=== PATIENT | male | born 1960 | race Caucasian/White ===

== ENCOUNTER 2020-04-13 08:05 | Outpatient (REF) | payer BC, SELFPAY | END 2020-04-13 08:06 | disposition home or self-care (01) | LOC: HO.BBR 08:05 | PROVIDERS: PCP Internal Medicine Endocrinology, Diabetes & Metabolism; Visit Provider Internal Medicine Gastroenterology | DX: E83.110 Hereditary hemochromatosis (principal) | CPT/HCPCS: 99195 ==

== ENCOUNTER 2020-06-08 08:32 | Outpatient (REF) | payer BC, OTHER, SELFPAY | END 2020-06-08 08:33 | disposition home or self-care (01) | LOC: HO.BBR 08:32 | PROVIDERS: Visit Provider Internal Medicine Gastroenterology | DX: Z13.89 Encounter for screening for other disorder (principal) ==

== ENCOUNTER 2020-07-24 10:57 | Outpatient (REF) | payer OTHER, SELFPAY | END 2020-07-24 10:58 | disposition home or self-care (01) | LOC: HO.WFDLDS 10:57 | PROVIDERS: PCP Internal Medicine Endocrinology, Diabetes & Metabolism; Visit Provider Internal Medicine | DX: Z20.822 Contact with and (suspected) exposure to COVID-19 (principal) | CPT/HCPCS: 36415; C9803; U0003; U0005 ==

== ENCOUNTER 2020-08-03 08:21 | Outpatient (REF) | payer OTHER, SELFPAY | END 2020-08-03 08:22 | disposition home or self-care (01) | LOC: HO.BBR 08:21 | PROVIDERS: Visit Provider Internal Medicine Gastroenterology | DX: Z13.89 Encounter for screening for other disorder (principal) ==

== ENCOUNTER 2020-10-05 08:06 | Outpatient (REF) | payer OTHER, SELFPAY | END 2020-10-05 08:07 | disposition home or self-care (01) | LOC: HO.BBR 08:06 | PROVIDERS: Visit Provider Internal Medicine Gastroenterology | DX: Z13.89 Encounter for screening for other disorder (principal) ==

== ENCOUNTER 2020-11-30 08:06 | Outpatient (REF) | payer OTHER, SELFPAY | END 2020-11-30 08:07 | disposition home or self-care (01) | LOC: HO.BBR 08:06 | PROVIDERS: Visit Provider Internal Medicine Gastroenterology | DX: Z13.89 Encounter for screening for other disorder (principal) ==

== ENCOUNTER 2021-01-24 13:06 | Outpatient (REF) | payer OTHER, SELFPAY | END 2021-01-24 13:07 | disposition home or self-care (01) | LOC: HO.BBR 13:06 | PROVIDERS: Visit Provider Internal Medicine Gastroenterology | DX: Z13.89 Encounter for screening for other disorder (principal) ==

== ENCOUNTER 2021-03-22 08:07 | Outpatient (REF) | payer OTHER, SELFPAY | END 2021-03-22 08:08 | disposition home or self-care (01) | LOC: HO.BBR 08:07 | PROVIDERS: Visit Provider Internal Medicine Gastroenterology | DX: Z13.89 Encounter for screening for other disorder (principal) ==

== ENCOUNTER 2021-06-28 08:17 | Outpatient (REF) | payer OTHER, SELFPAY | END 2021-06-28 08:18 | disposition home or self-care (01) | LOC: HO.BBR 08:17 | PROVIDERS: Visit Provider Internal Medicine Gastroenterology | DX: Z13.89 Encounter for screening for other disorder (principal) ==

== ENCOUNTER 2021-08-23 08:31 | Outpatient (REF) | payer OTHER, SELFPAY | END 2021-08-23 08:32 | disposition home or self-care (01) | LOC: HO.BBR 08:31 | PROVIDERS: Visit Provider Internal Medicine Gastroenterology | DX: Z13.89 Encounter for screening for other disorder (principal) ==

== ENCOUNTER 2021-10-18 08:08 | Outpatient (REF) | payer OTHER, SELFPAY | END 2021-10-18 08:09 | disposition home or self-care (01) | LOC: HO.BBR 08:08 | PROVIDERS: Visit Provider Internal Medicine Gastroenterology | DX: Z13.89 Encounter for screening for other disorder (principal) ==

== ENCOUNTER 2021-12-13 08:05 | Outpatient (REF) | payer OTHER, SELFPAY | END 2021-12-13 08:06 | disposition home or self-care (01) | LOC: HO.BBR 08:05 | PROVIDERS: Visit Provider Internal Medicine Gastroenterology | DX: Z13.89 Encounter for screening for other disorder (principal) ==

== ENCOUNTER 2022-01-31 08:02 | Outpatient (REF) | payer OTHER, SELFPAY | END 2022-01-31 08:03 | disposition home or self-care (01) | LOC: HO.BBR 08:02 | PROVIDERS: Visit Provider Internal Medicine Gastroenterology | DX: Z13.89 Encounter for screening for other disorder (principal) ==

== ENCOUNTER 2022-03-25 08:07 | Outpatient (REF) | payer OTHER, SELFPAY | END 2022-03-25 08:08 | disposition home or self-care (01) | LOC: HO.BBR 08:07 | PROVIDERS: Visit Provider Internal Medicine Gastroenterology | DX: Z13.89 Encounter for screening for other disorder (principal) ==

== ENCOUNTER 2022-06-17 09:02 | Outpatient (REF) | payer OTHER, SELFPAY | END 2022-06-17 09:03 | disposition home or self-care (01) | LOC: HO.BBR 09:02 | PROVIDERS: Visit Provider Internal Medicine Gastroenterology | DX: Z13.89 Encounter for screening for other disorder (principal) ==

== ENCOUNTER 2022-09-01 14:04 | Outpatient (REF) | payer OTHER, SELFPAY | END 2022-09-01 14:05 | disposition home or self-care (01) | LOC: HO.BBR 14:04 | PROVIDERS: PCP Internal Medicine Endocrinology, Diabetes & Metabolism; Visit Provider Internal Medicine Gastroenterology | DX: Z13.89 Encounter for screening for other disorder (principal) ==

== ENCOUNTER 2022-12-08 08:05 | Outpatient (REF) | payer OTHER, SELFPAY | END 2022-12-08 08:06 | disposition home or self-care (01) | LOC: HO.BBR 08:05 | PROVIDERS: Visit Provider Internal Medicine Gastroenterology | DX: Z13.89 Encounter for screening for other disorder (principal) ==

== ENCOUNTER 2023-03-03 08:11 | Outpatient (REF) | payer OTHER, SELFPAY | END 2023-03-03 08:12 | disposition home or self-care (01) | LOC: HO.BBR 08:11 | PROVIDERS: Visit Provider Internal Medicine Gastroenterology | DX: Z13.89 Encounter for screening for other disorder (principal) ==

== ENCOUNTER 2023-05-26 08:57 | Outpatient (REF) | payer OTHER, SELFPAY | END 2023-05-26 08:58 | disposition home or self-care (01) | LOC: HO.BBR 08:57 | PROVIDERS: PCP Internal Medicine Endocrinology, Diabetes & Metabolism; Visit Provider Internal Medicine Gastroenterology | DX: Z13.89 Encounter for screening for other disorder (principal) ==

== ENCOUNTER 2023-08-20 08:58 | Outpatient (REF) | payer OTHER, SELFPAY | END 2023-08-20 08:59 | disposition home or self-care (01) | LOC: HO.BBR 08:58 | PROVIDERS: PCP Internal Medicine Endocrinology, Diabetes & Metabolism; Visit Provider Internal Medicine Gastroenterology | DX: Z13.89 Encounter for screening for other disorder (principal) ==

== ENCOUNTER 2023-09-11 12:01 | Outpatient (REF) | payer MEDICARE, OTHER, SELFPAY | END 2023-09-11 12:02 | disposition home or self-care (01) | LOC: HO.BBR 12:01 | PROVIDERS: PCP Internal Medicine Endocrinology, Diabetes & Metabolism; Visit Provider Internal Medicine Gastroenterology | DX: Z13.89 Encounter for screening for other disorder (principal) ==

== ENCOUNTER 2023-12-04 08:08 | Outpatient (REF) | payer OTHER, MEDICARE, SELFPAY | END 2023-12-04 08:09 | disposition home or self-care (01) | LOC: HO.BBR 08:08 | PROVIDERS: PCP Internal Medicine Endocrinology, Diabetes & Metabolism; Visit Provider Internal Medicine Gastroenterology | DX: Z13.89 Encounter for screening for other disorder (principal) ==

== ENCOUNTER 2024-03-04 08:08 | Outpatient (REF) | payer OTHER, MEDICARE, SELFPAY | END 2024-03-04 08:09 | disposition home or self-care (01) | LOC: HO.BBR 08:08 | PROVIDERS: PCP Internal Medicine Endocrinology, Diabetes & Metabolism; Visit Provider Internal Medicine Gastroenterology | DX: Z13.89 Encounter for screening for other disorder (principal) ==

== ENCOUNTER 2024-05-27 08:13 | Outpatient (REF) | payer OTHER, MEDICARE, SELFPAY ==
--- OUTSIDE RECORDS SUMMARY | 2024-06-01 05:23 | XMS_ITS | Continuity of Care Document ---
Author Organization [facility] [address] [place] [address] Phone [phone] Care Team Providers Care Apron Man Name Role Phone John Lind M.D. Care Team Information Rece iver [phone] Rosangela Avalos Care Team Information Receive r [phone] Problems Active Problems Provider Date Cardiomyopathy John Lind M.D. Onset: Sarcoidosis John Lind M.D. Onset: Polyneuropathy John Lind M.D. Onset: Hemochromatosis Nurse Onset: Essential hypertension Nurse Onset: Social History Type Date Description Comments Sex Unknown Lives With Spouse ETOH Use Denies alcohol use Tobacco Use Start: Unknown Patient has never smoked Allergies and adverse reactions Description No Known Drug Allergies Medications Active Medications SIG Qnty Indications Ordering Provider Date Tamsulosin HCL0.4mg Capsules Take 1 Capsule By Mouth Every Night 90levy Lind M.D. 12/16/2022 [id number] Capsules Take 1 Capsule By Mouth Twice A Day 120levy Villanueva M.D. 05/12/2022 [id number] Tablets Take 1 & 1/2 by mouth daily Unknown [id number] Tablets Take 1 tablet daily Unknown [id number] Tablets Take 1 daily Unknown Metoprolol Succinate ER25mg Tablets ER 24HR Take 1 Tablet By Mouth Daily. In The Morning And 1/2 Tablet By Mouth In The Even Unknown Vital Signs Date Vital Result Comment 03/07/2024 9:15am BP Systolic 90 mmHg BP Diastolic 60 mmHg Heart Rate 98 /min Height 69.5 inches 5'9.50 Weight 159.38 lb BMI (Body Mass Index) 23.2 kg/m2 Results Test Acquired Date Facility Test Result H/L Range Note Laboratory test finding 03/09/2024 [facility] Hemoglobin A1c 5.4 % 4.8-5.6 1 Glucose 93 mg/dL 70-99 Laboratory test finding 03/07/2024 [facility] Glucose, Serum <pending> Comp. Metabolic Panel (14) 01/04/2024 [facility] Glucose 102 mg/dL High 70-99 BUN 18 mg/dL 8-27 Creatinine 0.97 mg/dL 0.76-1. 27 eGFR 87 mL/min/1.73 >59 BUN/Creatinine Ratio 19 10-24 Sodium 139 mmol/L 134-144 Potassium 4.8 mmol/L 3.5-5.2 Chloride 106 mmol/L 96-106 Carbon Dioxide, Total 20 mmol/L 20-29 Calcium 9.6 mg/dL 8.6-10. 2 Protein, Total 6.5 g/dL 6.0-8.5 Albumin 4.3 g/dL 3.9-4.9 Globulin, Total 2.2 g/dL 1.5-4.5 Bilirubin, Total 0.5 mg/dL 0.0-1 .2 Alkaline Phosphatase 88 IU/L 44-121 Ast (Sgot) 21 IU/L 0-40 Alt (SGPT) 23 IU/L 0-44 Lipid Panel 01/04/2024 [facility] Cholesterol, Total 131 mg/dL 100-199 Triglycerides 234 mg/dL High 0-149 HDL Cholesterol 25 mg/dL Low >39 VLDL Cholestero l Adam 39 mg/dL 5-40 LDL Chol Calc (Nih) 67 mg/dL 0-99 LDL Calc Comment: TNP Laboratory test finding 01/04/2024 [facility] Prostate-Specifi c Ag 0.7 ng/mL 0.0-4.0 2 Comprehensive Metabolic Panl 05/12/2023 [facility] Glucose 74 mg/dL (70-99) BUN 25 mg/dL High (8-23) Creatinine 1.1 mg/dL (0.7-1. 2) Sodium 140 mmol/L (133-14 5) Potassium 4.9 mmol/L (3.6-5. 2) Chloride 101 mmol/L (98-107 ) Bicarbonate 27 mmol/L (22-29) Anion Gap 12 (4-17) Albumin 4.5 GM/DL (3.4-4. 8) Calcium 9.8 mg/dL (8.6-10 .5) Bilirubin,Total 0.5 mg/dL (0-1.2 ) Total Protein 6.7 GM/DL (6.2-8. 2) Ag Ratio 2.0 Ast 20 U/L (0-40) Alk Phos 94 U/L (40-129 ) Alt 34 U/L (0-41) Estimated GFR Creatinine 74 ML/MIN/1.73M2 3 Free And Total PSA 05/12/2023 [facility] Lab Total PSA 0.7 NG/ML (0-4) 4 Free PSA 0.3 NG/ML Percent Free PSA THE PERCENTAGE O <SEE NOTE> % (25-100 ) 5 Free And Total PSA 06/17/2022 [facility] Lab Total PSA 1.3 NG/ML (0-4) 6 Free PSA 0.3 NG/ML Percent Free PSA THE PERCENTAGE O <SEE NOTE> % (25-100 ) 7 1 Prediabetes: 5.7 - 6 .4 Diabetes: >6.4 Glycemic control for adults with diabetes: <7.0 2 Samir ECLIA methodol ogy. According to the [employer] [employer], Serum PSA should decrease and remain at undetectable levels after radical prostatectomy. The AUA defines biochemical recurrence as an initial PSA value 0.2 ng/mL or greater followed by a subsequent confirmatory PSA value 0.2 ng/mL or greater. Values obtained with different assay methods or kits cannot be used interchangeably. Results cannot be interpreted as absolute evidence of the presence or absence of malignant disease. 3 Creatinine based est imated glomerular filtration (eGFR) in adults is calculated using the National Kid[employer] Foundation recommended 2020 CKD-EPI equation. Estimates GFR from serum creatinine, age and sex. 4 TEST PERFORMED USING THE SAMIR ELECTROCHEMILLUMINESCENCE TOTAL PSA ASSAY. PSA VALUES OBTAINED WITH OTHER ASSAY METHODS OR KITS CANNOT BE USED INTERCHANGEABLY. 5 THE PERCENTAGE OF FR EE PSA IS INTENDED TO BE USED TO ENHANCE THE DIFFERENTIATION OF PROSTATE CANCER FROM BENIGN PROSTATE DISEASE IN SUBJECTS WHOSE TOTAL PSA VALUES ARE BETWEEN 4.0 AND 10.0 NG/ML. FOR SUBJECTS WHOSE TOTAL PSA LEVELS FALL BELOW 4.0 OR ABOVE 10.0 NG/ML, THE PROBABILITY OF PROSTATE CANCER IS DETERMINED ON THE BASIS OF THE TOTAL PSA ALONE. THEREFORE, THE PERCENT FREE PSA VALUES WILL NOT BE CALCULATED OR REPORTED WHEN THE TOTAL PSA IS LESS THAN 4.0 OR ABOVE 10.0 NG/ML. TESTING PERFORMED USING THE SAMIR ELECTROCHEMILLUMINESCENCE TOTAL AND FREE PSA ASSAYS. VALUES OBTAINED WITH OTHER ASSAY METHODS OR KITS CANNOT BE USED INTERCHANGEABLY. 6 TEST PERFORMED USING THE SAMIR ELECTROCHEMILLUMINESCENCE TOTAL PSA ASSAY. PSA VALUES OBTAINED WITH OTHER ASSAY METHODS OR KITS CANNOT BE USED INTERCHANGEABLY. 7 THE PERCENTAGE OF FR EE PSA IS INTENDED TO BE USED TO ENHANCE THE DIFFERENTIATION OF PROSTATE CANCER FROM BENIGN PROSTATE DISEASE IN SUBJECTS WHOSE TOTAL PSA VALUES ARE BETWEEN 4.0 AND 10.0 NG/ML. FOR SUBJECTS WHOSE TOTAL PSA LEVELS FALL BELOW 4.0 OR ABOVE 10.0 NG/ML, THE PROBABILITY OF PROSTATE CANCER IS DETERMINED ON THE BASIS OF THE TOTAL PSA ALONE. THEREFORE, THE PERCENT FREE PSA VALUES WILL NOT BE CALCULATED OR REPORTED WHEN THE TOTAL PSA IS LESS THAN 4.0 OR ABOVE 10.0 NG/ML. TESTING PERFORMED USING THE SAMIR ELECTROCHEMILLUMINESCENCE TOTAL AND FREE PSA ASSAYS. VALUES OBTAINED WITH OTHER ASSAY METHODS OR KITS CANNOT BE USED INTERCHANGEABLY. Procedures Date Code Description Status 12/16/2022 26402 Additional suppl ies, materials, staff time over and above usual Completed 06/03/2022 09511 Additional suppl ies, materials, staff time over and above usual Completed Medical Devices Description No Information Available Encounters Type Date Location Provider Dx Diagnosis Office Visit 03/07/2024 8:45a Main Office NERIS Moss E83.119 Hemochromatos is, unspecified G62.9 Polyneuropathy, unsp ecified D86.9 Sarcoidosis, unspeci fied I42.9 Cardiomyopathy, unsp ecified Z83.3 Family history of di abetes mellitus Assessments Date Code Description Provider 03/07/2024 E83.119 Hemochromatosis, unspecified NERIS Moss 03/07/2024 G62.9 Neuropathy NERIS Moss 03/07/2024 D86.9 Sarcoidosis NERIS Moss 03/07/2024 I42.9 Cardiomyopathy NERIS Chowdhury 03/07/2024 Z83.3 Family history of diabetes m tanja NERIS Moss Plan of Treatment Future Appointment(s):* 09/08/2024 1:15 pm - NERIS Moss at Main Office 03/07/2024 - NERIS Moss* E83.119 Hemochromatosis, unspecified * G62.9 Neuropathy * D86.9 Sarcoidosis * I42.9 Cardiomyopathy * Z83.3 Family history of diabetes mellitus* New Labs:* Lipid Panel, Ordered: 03/07/24 Functional Status Description No Information Available Mental Status Description No Information Available Referrals Refer to Reason for Referral Status Appt Santiago e [facility] Pulmonary SARCOIDOSIS HISTORY OF RSV Closed 10/07/2022 [address] [place] [address] [phone]
== END 2024-05-27 08:14 | disposition home or self-care (01) ==
LOC: HO.BBR 08:13
PROVIDERS: PCP Internal Medicine Endocrinology, Diabetes & Metabolism; Visit Provider Internal Medicine Gastroenterology
DX: Z13.89 Encounter for screening for other disorder (principal)

== ENCOUNTER 2024-08-19 08:36 | Outpatient (REF) | payer OTHER, MEDICARE, SELFPAY ==
--- OUTSIDE RECORDS SUMMARY | 2024-08-19 08:52 | XMS_ITS | Encounter Summary ---
Author Organization [facility] [place] [address] Care Team Providers Care Loom Technician Name Role Phone Rosangela Avalos Primary Care Provider [phone] Encounter Details Date Type Department Care Team (Late st Contact Info) Description 07/29/2024 Telephone Gastroenterology - [address] [place] [address] Mary Galvan MA Social History Tobacco Use Types Packs/Day Years Used Date Smoking Tobacco: Never Passive Smoke Exposure: Never Smokeless Tobacco: Never Alcohol Use Standard Drinks/Week Comments Not Currently 0 (1 standard drink = 0.6 oz pur e alcohol) Sex and Gender Information Value Date Recorded Sex Assigned at Male 07/19/2024 1:44 PM EST Legal Sex Male 1:57 AM EST Gender Identity Male 07/19/2024 1:44 PM EST Sexual Orientation Choose not to disclose 2024 1:44 PM EST documented as of this encounter Progress Notes * Mary Galvan MA - 07/29/2024 1:[address] TAY TOLD PT ULTRASOUND OK NO MASSES NEEDS TO REPEAT IN 6MO ALONG WITH LABOWRK * Mary Galvan MA - 07/29/2024 1:55 PM EST ----- Message from Ramón Tay MD sent at 07/29/2024 12:41 PM EST ----- Call pt, US OK, no mass, repeat 6 mo US ands lab recall 6 mo ty documented in this encounter Plan of Treatment Upcoming Encounters Date Type Department Care Team (Late st Contact Info) Description 08/19/2024 10:15 AM EST Office Visit Gastroenterology - [address] [address] Rangel Tay MD [address] [address] documented as of this encounter Visit Diagnoses Not on filedocumented in this encounter Care Teams Loom Technician Relationship Specialty Start Date End Date Rosangela Avalos PA [address] [place] [address] [address] [place] [address] PCP - General 07/05/24 documented as of this encounter
--- OUTSIDE RECORDS SUMMARY | 2024-08-19 08:52 | XMS_ITS | Encounter Summary ---
Author Organization [facility] Address [address] [place] [address] Care Team Providers Care Veterinary Medical Officer Name Role Phone Rosangela Avalos Primary Care Provider [phone] Reason for Visit * Reason Comments Pain Consult * Consultation (Routine) - Closed Specialty Diagnoses / Procedures Referred By Contac t Referred To Contact Orthopedic Surgery / Orthopaedic Surgery Diagnoses Knee pain, unspecified chronicity, unspecified laterality Rosangela Avalos PA [address] [place] [address] Dr [address] [place] [address] Phone: tel: fax: Linden Bermeo PA [address] [place] [address] Phone: tel: fax: Referral ID Status Reason Start Date Expiration Date V isits Requested Visits Authorized [id number] Closed Specialty Services Required 07/22/2024 07/22/2025 1 1 Encounter Details Date Type Department Care Team (Late st Contact Info) Description 07/26/2024 1:30 PM EST Consult Orthopedics - [address] [address] Linden Bermeo PA [address] [place] [address] Primary osteoarthritis of left knee (Primary Dx); Knee pain, unspecified chronicity, unspecified laterality Social History Tobacco Use Types Packs/Day Years Used Date Smoking Tobacco: Never Passive Smoke Exposure: Never Smokeless Tobacco: Never Tobacco Cessation:Counseling Given: Not Answered Alcohol Use Standard Drinks/Week Comments Not Currently 0 (1 standard drink = 0.6 oz pur e alcohol) Sex and Gender Information Value Date Recorded Sex Assigned at Male 07/19/2024 1:44 PM EST Legal Sex Male 1:57 AM EST Gender Identity Male 07/19/2024 1:44 PM EST Sexual Orientation Choose not to disclose 2024 1:44 PM EST documented as of this encounter Last Filed Vital Signs Vital Sign Reading Time Taken Comments Blood Pressure - - Pulse - - Temperature - - Respiratory Rate 16 07/26/2024 1:33 PM EST Oxygen Saturation - - Inhaled Oxygen Concentration - - Weight 73 kg (161 lb) 07/26/2024 1:33 PM EST Height 176.5 cm (5' 9.5 ) 07/26/2024 1:33 PM EST Body Mass Index 23.43 07/26/2024 1:33 PM EST documented in this encounter Ordered Prescriptions Prescription Sig Dispense Quantity Refills Last Filled Start Date End Date diclofenac (VOLTAREN) 1 % topical gelIndications:Kne e pain, unspecified chronicity, unspecified laterality Apply 1 g topically 3 (three) times a day. 90 g 2 07/26/2024 documented in this encounter Progress Notes * NERIS Schultz - 07/26/2024 1:30 PM EST CHIEF COMPLAINT: Pain and Consult of the Left Knee had concerns including Pain and Consult of the Left Knee. IDENTIFIER: Horacio Andujar is a 63 y.o. old male. HPI: Horacio Andujar is here for evaluation of left knee pain. Patient describes pain in the knee that started about a month or so ago. Difficulty with bent knee activities climbing stairs etc. He had some swelling a few months ago around [place] time. Was also seen for this a few years ago and found to have arthritis in the knee. Also has a more distant history of meniscus surgery.. ROS: GENERAL: No malaise, significant weight loss or fever HEENT: No changes in hearing or vision, nose bleeds or other nasal problems NECK: No lumps, goiter, pain or significant neck swelling RESPIRATORY: No cough, wheezing or shortness of breath CARDIOVASCULAR: No chest pain, leg swelling or palpitations GI: No abdominal discomfort, blood in stools or black stools : No dysuria, frequency or incontinence MUSCULOSKELETAL: See HPI. SKIN: No lesions, rash or itching NEURO: No persistent headache, syncope, seizures, weakness or numbness Remainder of systems noncontributory. PHYSICAL EXAM: Vitals: 07/26/24 1333 Resp: 16 Weight: 73 kg (161 lb) Height: 1.765 m (69.5 ) Today there is no swelling or effusion Tenderness of the lateral joint line No instability LABS/IMAGING: Xrays reviewed: X-rays taken today demonstrate severe joint space narrowing of the left knee particularly of the lateral side and almost [id number] on the tunnel view. These are similar to x-rays taken in 2021 IMPRESSION: 1. Primary osteoarthritis of left knee 2. Knee pain, unspecified chronicity, unspecified laterality PLAN: 1. Knee pain, unspecified chronicity, unspecified laterality - Ambulatory referral to Orthopedic Surgery - diclofenac (VOLTAREN) 1 % topical gel; Apply 1 g topically 3 (three) times a day. Dispense: 90 g;Refill: 2 2. Primary osteoarthritis of left knee We discussed options. It sounds like this is not as frequent or severe that this requires injection. I did prescribe Voltaren gel and patient can always return if pain becomes more severe or frequentto require possibly an injection No orders of the defined types were placed in this encounter. The details of the visit were reviewed with the patient. Pertinent history, and objective findings were reviewed, along with the diagnoses: Horacio Kielor acknowledges understanding of the above plan and agrees to follow recommendations and/or take medications as prescribed. No follow-ups on file. PAST MEDICAL HISTORY: There are no problems to display for this patient. Past Surgical History: Procedure Laterality Date BACK SURGERY PROCEDURE: HISTORICAL BACK SURGERY; COMMENT: L5-S1 HAND SURGERY Left PROCEDURE: HISTORICAL HAND SURGERY; COMMENT: ORIF of Metacarpal Fractures, hardware removed HERNIA REPAIR Bilateral PROCEDURE: HISTORICAL HERNIA REPAIR/ING KNEE ARTHROSCOPY Left 01/16/2006 PROCEDURE: VT ARTHROSCOPY AID TX SPINE&/FX KNEE W/O FIXJ; COMMENT: Partial Lateral Mensicectomy, Partial Medial and Lateral Chondroplasty: Dr. Gilliland SOCIAL HISTORY: Social History Tobacco Use Smoking status: Never Passive exposure: Never Smokeless tobacco: Never Substance Use Topics Alcohol use: Not Currently FAMILY HISTORY: No family history on file. MEDICATIONS DISCONTINUED/REORDERED: There are no discontinued medications. ACTIVE MEDICATIONS: Outpatient Medications Marked as Taking for the 07/26/24 encounter (Consult) with NERIS Schultz Medication Sig Dispense Refill Farxiga 10 mg tablet Take 1 tablet (10 mg total) by mouth 1 (one) time each day. metoprolol succinate (TOPROL-XL) 25 mg 24 hr tablet Take 1.5 tablets (37.5 mg total) by mouth 2 (two) times a day. pregabalin (LYRICA) 50 mg capsule Take 50 mg by mouth 2 times daily. spironolactone (ALDACTONE) 25 mg tablet Take 1 tablet (25 mg total) by mouth 1 (one) time each day. tamsulosin (FLOMAX) 0.4 mg 24 hr capsule Take 1 capsule (0.4 mg total) by mouth 1 (one) time each day. valsartan (DIOVAN) 40 mg tablet Take 1.5 tablets (60 mg total) by mouth 1 (one) time each day. ALLERGIES: No Known Allergies NERIS Schultz Cosigned by Nino Rodriguez MD at 07/31/2024 5:14 PM EST documented in this encounter Plan of Treatment Upcoming Encounters Date Type Department Care Team (Late st Contact Info) Description 08/19/2024 10:15 AM EST Office Visit Gastroenterology - [address] [phone] Rangel Tay MD [address] [address] documented as of this encounter Visit Diagnoses Diagnosis Primary osteoarthritis of left knee- Primary Knee pain, unspecified chronicity, unspecified laterality documented in this encounter Historical Medications * This list may reflect changes made after this encounter. valsartan (DIOVAN) 40 mg tablet Take 1.5 tablets (60 mg total) by mouth 1 (one) time each day. metoprolol succinate (TOPROL-XL) 25 mg 24 hr tablet Take 1.5 tablets (37.5 mg total) by mouth 2 (two) times a day. 05/31/2024 tamsulosin (FLOMAX) 0.4 mg 24 hr capsule Take 1 capsule (0.4 mg total) by mouth 1 (one) time each day. spironolactone (ALDACTONE) 25 mg tablet Take 1 tablet (25 mg total) by mouth 1 (one) time each day. Farxiga 10 mg tablet Take 1 tablet (10 mg total) by mouth 1 (one) time each day. 08/25/2023 added in this encounter Orders Outpatient Referral Count Last Ordered Date Fir st Ordered Date AMB REFERRAL TO ORTHOPEDIC SURGERY 1 2024 documented in this encounter Care Teams Veterinary Medical Officer Relationship Specialty Start Date End Date Rosangela Avalos PA [address] [place] [address] [address] [place] [address] PCP - General 07/05/24 documented as of this encounter
--- OUTSIDE RECORDS SUMMARY | 2024-08-19 08:52 | XMS_ITS | Continuity of Care Document ---
Author Organization [facility] [address] [place] [address] Phone [phone] Care Team Providers Care Automation/Controls Manager Name Role Phone John Lind M.D. Care Team Information Rece iver [phone] Rosangela Avalos Care Team Information Receive r [phone] Problems Active Problems Provider Date Cardiomyopathy John [...] Mouth Every Night 90levy Lind M.D. 12/16/2022 [id number] Capsules Take 1 Capsule By Mouth Twice A Day 120levy Villanueva M.D. 05/12/2022 [id number] Tablets Take 1 & 1/2 by mouth daily Unknown Owbmezp06mc Tablets Take 1 tablet daily Unknown [id number] Tablets Take 1 daily Unknown Metoprolol Succinate [...] ng/mL 0.0-4.0 2 Comprehensive Metabolic Panl 05/12/2023 [facility] Glucose 74 mg/dL (70-99) [...] ML/MIN/1.73M2 3 Free And Total PSA 05/12/2023 [facility] Total PSA 0.7 NG/ML (0-4) 4 Free PSA 0.3 NG/ML Percent Free PSA THE PERCENTAGE O <SEE NOTE> % (25-100 ) 5 Free And Total PSA 06/17/2022 [facility] Total PSA 1.3 NG/ML (0-4) 6 Free PSA 0.3 NG/ML Percent Free PSA THE PERCENTAGE O <SEE NOTE> % (25-100 ) 7 1 Prediabetes: 5.7 - 6 .4 Diabetes: >6.4 Glycemic control for adults with diabetes: <7.0 2 Samir ECLIA methodol ogy. According to the [place] [employer], Serum PSA should decrease and [...] INTERCHANGEABLY. Procedures Date Code Description Status 12/16/2022 04309 Additional suppl ies, materials, staff time over and above usual Completed 06/03/2022 39111 Additional suppl ies, materials, staff time over [...] 03/07/2024 Z83.3 Family history of diabetes m kerryelise NERIS Moss Plan of Treatment Future Appointment(s):* 09/30/2024 3:00 pm - NERIS Moss at Main Office 03/07/2024 - NERIS Moss* E83.119 Hemochromatosis, unspecified * G62.9 Neuropathy * D86.9 Sarcoidosis * I42.9 Cardiomyopathy * Z83.3 Family history of diabetes mellitus* New Labs:* Lipid Panel, Ordered: 03/07/24 Functional Status Description No Information Available Mental Status Description No Information Available Referrals Refer to Reason for Referral Status Appt [facility] Knee Pain Closed 07/26 [address] [place], [place] [id number] [phone] [facility] Pulmonary SARCOIDOSIS HISTORY OF RSV Closed 10/07/2022 [address] [place], [place] [id number] [phone]
--- OUTSIDE RECORDS SUMMARY | 2024-08-19 08:52 | XMS_ITS | Encounter Summary ---
Author Organization [facility] Address [address] [place] [address] Care Team Providers Care Wood Fence Installer Name Role Phone Rosangela Avalos Primary Care Provider Reason for Referral * Imaging (Routine) - Closed Specialty Diagnoses / Procedures Referred By Contac t Referred To Contact Radiology Diagnoses Hereditary hemochromatosis (CMS/HCC) Procedures US Abdomen Complete Rangel Tay MD [address] [place] [address] Phone: tel: fax: [address] [address] Phone: tel: Referral ID Status Reason Start Date Expiration Date Visits Re quested Visits Authorized [id number] Closed 07/19/2024 07/19/2025 1 1 Reason for Visit * Imaging (Routine) - Closed Specialty Diagnoses / Procedures Referred By Contac t Referred To Contact Radiology Diagnoses Hereditary hemochromatosis (CMS/HCC) Procedures US Abdomen Complete Rangel Tay MD [address] [address] Phone: tel: fax: [address] [address] Phone: tel: Referral ID Status Reason Start Date Expiration Date Visits Re quested Visits Authorized [id number] Closed 07/19/2024 07/19/2025 1 1 Encounter Details Date Type Department Care Team (Latest Contact Info) Description 07/29/2024 8:25 AM EST - 07/29/2024 11:59 PM EST Hospital Encounter [facility] Ultrasound [address] [place] [address] Hereditary hemochromatosis (CMS/HCC) Discharge Disposition: Home or Self Care Social History Tobacco Use Types Packs/Day Years [...] PM EST documented as of this encounter Medications at Time of Discharge diclofenac (VOLTAREN) 1 % topical gelIndications:Kn ee pain, unspecified chronicity, unspecified laterality Apply 1 g topically 3 (three) times a day. 90 g 2 07/26/2024 Farxiga 10 mg tablet Take 1 tablet (10 mg total) by mouth 1 (one) time each day. 08/25/2023 lisinopriL (PRINIVIL,ZESTRIL ) 10 mg tablet Take 1 tablet (10 mg total) by mouth 1 (one) time each day. 01/20/2022 metoprolol succinate (TOPROL-XL) 25 mg 24 hr tablet Take 1.5 tablets (37.5 mg total) by mouth 2 (two) times a day. 05/31/2024 pregabalin (LYRICA) 50 mg capsule Take 50 [...] by mouth 1 (one) time each day. documented as of this encounter Discharge Disposition Disposition Code Departure Means Destination Home or Self Care documented in this encounter Plan of Treatment Upcoming Encounters Date Type Department Care Team (Late st Contact Info) Description 08/19/2024 10:15 AM EST Office Visit Gastroenterology - [address] [facility] [address] [place] [address] Rangel Tay MD [address] [facility] [address] [place] [address] documented as of this encounter Procedures Procedure Name Priority Date/Time Associated Diagnosis Comments US ABDOMEN COMPLETE Routine 07/29/2024 9:02 AM EST Hereditary hemochromatosis (CMS/HCC) documented in this encounter Results * US Abdomen Complete (07/29/2024 9:02 AM EST) Anatomical Region Laterality Modality Body Ultrasound 07/29/2024 11:5 6 AM EST Impressions 07/29/2024 12:06 PM EST 1. Heterogeneous hepatic echotexture consistent with the history of hemochromatosis. 2. Cholelithiasis without evidence of cholecystitis. The extra-hepatic duct is at the upper limits of normal at 6.2 mm. There is no intrahepatic biliary dilatation. 3. Bilateral nonobstructing renal calculi are present. There is a small proteinaceous or hemorrhagic cyst at the lower pole of the right kidney, measuring up to 9.1 mm. 4. Moderate splenomegaly. 5. The pancreas is incompletely visualized on this study. Code 20057 G9550, G9547 -------- FINAL REPORT -------- Dictated By: Gagan Fuentes Dictated Date: 07/29/2024 11:56 ET Assigned Physician: Gagan Fuentes Reviewed and Electronically Signed By: Gagan Fuentes Signed Date: 07/29/2024 12:06 ET Workstation ID: [id number] Transcribed By: Self Edit Transcribed Date: 07/29/2024 12:04 ET Narrative 07/29/2024 12:06 PM EST HISTORY: The patient is a 63-year-old male with history of hemachromatosis. FINDINGS: Real-time ultrasonography of the abdomen is performed. The visualized portion of the inferior vena cava is patent. The abdominal aorta is normal in caliber, with the suprarenal aorta measuring 2.6 cm, the proximal infrarenal aorta measuring 2.0 cm, and the distal infrarenal aorta measuring 2.0 cm. A moderate amount of atherosclerotic plaque is present. The head and body of the pancreas are of normal appearance; the tail is poorly visualized. The liver is normal in size with a span of 13.1 cm. There hepatic parenchyma is heterogeneous consistent with the history of hemachromatosis. No hepatic mass is seen. The portal vein is patent with hepatopetal flow. There is no intrahepatic biliary dilatation. The extra-hepatic duct is at the upper limits of normal in caliber, at 6.2 mm. No ductal calculus or mass is seen. The gallbladder demonstrates multiple mobile echogenic foci consistent with calculi. There is no gallbladder wall thickening or pericholecystic fluid, and there is no sonographic Catherine's sign per technologist notes. The right kidney is normal in size, measuring 10.2 cm in length. There is normal cortical thickness and no hydronephrosis or solid mass is seen. A group of echogenic foci are present at the interpolar area consistent with nonobstructing calculi. There is a tiny hypoechoic lesion at the lower pole measuring 8.0 x 7.7 x 9.1 mm, with internal echoes and a small amount of posterior acoustic shadowing, consistent with a proteinaceous or hemorrhagic cyst. The left kidney is normal in size, measuring 10.6 cm in length. There is normal cortical thickness and no mass or hydronephrosis is seen. There is a 4.3 mm echogenic focus at the mid to lower pole, consistent with a nonobstructing calculus. The spleen is moderately enlarged, measuring 18.3 x 6.4 x 15.1 cm. No ascites is seen. Procedure Note Gagan Fuentes MD - 07/29/2024 HISTORY: The patient is a 63-year-old male with history ofhemachromatosis. FINDINGS: Real-time ultrasonography of the abdomen is performed. Thevisualized portion of the inferior vena cava is patent. The abdominalaorta is normal in caliber, with the suprarenal aorta measuring 2.6 cm,the proximal infrarenal aorta measuring 2.0 cm, and the distal infrarenalaorta measuring 2.0 cm. A moderate amount of atherosclerotic plaque ispresent. The head and body of the pancreas are of normal appearance; thetail is poorly visualized. The liver is normal in size with a span of 13.1cm. There hepatic parenchyma is heterogeneous consistent with the historyof hemachromatosis. No hepatic mass is seen. The portal vein is patentwith hepatopetal flow. There is no intrahepatic biliary dilatation. Theextra-hepatic duct is at the upper limits of normal in caliber, at 6.2 mm.No ductal calculus or mass is seen. The gallbladder demonstrates multiplemobile echogenic foci consistent with calculi. There is no gallbladderwall thickening or pericholecystic fluid, and there is no sonographic Catherine's sign per technologist notes. The right kidney isnormal in size, measuring 10.2 cm in length. There is normal corticalthickness and no hydronephrosis or solid mass is seen. A group ofechogenic foci are present at the interpolar area consistent withnonobstructing calculi. There is a tiny hypoechoic lesion at the lowerpole measuring 8.0 x 7.7 x 9.1 mm, with internal echoes and a small amountof posterior acoustic shadowing, consistent with a proteinaceous orhemorrhagic cyst. The left kidney is normal in size, measuring 10.6 cm inlength. There is normal cortical thickness and no mass or hydronephrosisis seen. There is a 4.3 mm echogenic focus at the mid to lower pole,consistent with a nonobstructing calculus. The spleen is moderatelyenlarged, measuring 18.3 x 6.4 x 15.1 cm. No ascites is seen. IMPRESSION: 1. Heterogeneous hepatic echotexture consistent with the history ofhemochromatosis. 2. Cholelithiasis without evidence of cholecystitis. The extra-hepaticduct is at the upper limits of normal at 6.2 mm. There is no intrahepaticbiliary dilatation. 3. Bilateral nonobstructing renal calculi are present. There is a smallproteinaceous or hemorrhagic cyst at the lower pole of the right kidney,measuring up to 9.1 mm. 4. Moderate splenomegaly. 5. The pancreas is incompletely visualized on this study. Code 23636 G9550, G9547 -------- FINAL REPORT -------- Dictated By: Gagan Fuentes Dictated Date: 07/29/2024 11:56 ET Assigned Physician: Gagan Fuentes Reviewed and Electronically Signed By: Gagan Fuentes Signed Date: 07/29/2024 12:06 ET Workstation ID: [id number] Transcribed By: Self Edit Transcribed Date: 07/29/2024 12:04 ET us Rangel Tay MD [facility] US PROCEDURES Final Res ult documented in this encounter Visit Diagnoses Diagnosis Hereditary hemochromatosis (CMS/HCC) Hereditary hemochromatosis documented in this encounter Care Teams Wood Fence Installer Relationship Specialty Start Date End Date Rosangela Avalos PA [address] [place] [address] [place] [address] PCP - General 07/05/24 documented as of this encounter
--- OUTSIDE RECORDS SUMMARY | 2024-08-19 08:52 | XMS_ITS | Clinical Summary ---
Author Organization [facility] 299 [facility] Address [address] [place] [address] Phone Care Team Providers Care Welfare Officer Name Role Phone Rosangela Avalos Primary Care Provider [phone] Allergies No known active allergies Medications lisinopriL (PRINIVIL,ZESTRI L) 10 mg tablet Take 1 tablet (10 mg total) by mouth 1 (one) time each day. 2 Active pregabalin (LYRICA) 50 mg capsule Take 50 mg by mouth 2 times daily. Active Farxiga 10 mg tablet Take 1 tablet (10 mg total) by mouth 1 (one) time each day. 4 Active spironolactone (ALDACTONE) 25 mg tablet Take 1 tablet (25 mg total) by mouth 1 (one) time each day. Active tamsulosin (FLOMAX) 0.4 mg 24 hr capsule Take 1 capsule (0.4 mg total) by mouth 1 (one) time each day. Active metoprolol succinate (TOPROL-XL) 25 mg 24 hr tablet Take 1.5 tablets (37.5 mg total) by mouth 2 (two) times a day. 4 Active valsartan (DIOVAN) 40 mg tablet Take 1.5 tablets (60 mg total) by mouth 1 (one) time each day. Active diclofenac (VOLTAREN) 1 % topical gelIndications:K nee pain, unspecified chronicity, unspecified laterality Apply 1 g topically 3 (three) times a day. 90 g 2 5 Active Encounters Date Type Department Care Team Description 07/29/2024 8:25 AM EST - 07/29/2024 11:59 PM EST Hospital Encounter [facility] Ultrasound [address] [place] [phone] Hereditary hemochromatosis (CMS/HCC) Discharge Disposition: Home or Self Care 07/29/2024 Telephone Gastroenterology - [address] [place] [phone] Mary Galvan MA 07/26/2024 1:30 PM EST Consult Orthopedics - [place] [phone] Linden Bermeo PA Primary osteoarthritis of left knee (Primary Dx); Knee pain, unspecified chronicity, unspecified laterality 07/26/2024 12:45 PM EST - 07/26/2024 11:59 PM EST Hospital Encounter XRAY - [address] [phone] Chronic pain of left knee Discharge Disposition: Home or Self Care 07/18/2024 Telephone Gastroenterology - [address] [phone] Agustina Harrington MA Results from Last 3 Months Surgical History Surgery Date Site/Laterality Comments KNEE ARTHROSCOPY 01/16/2006 Left PROCEDURE: CT ARTHROSCOPY AID TX SPINE&/FX KNEE W/O FIXJ; COMMENT: Partial Lateral Mensicectomy, Partial Medial and Lateral Chondroplasty: Dr. Gilliland HERNIA REPAIR Bilateral PROCEDURE: HISTORICAL HERNIA REPAIR/ING BACK SURGERY PROCEDURE: HISTORICAL BACK SURGERY; COMMENT: L5-S1 HAND SURGERY Left PROCEDURE: HISTORICAL HAND SURGERY; COMMENT: ORIF of Metacarpal Fractures, hardware removed Medical History Medical History Date Comments Hypertension DX:Hypertension Peripheral neuropathy DX:Periphe ral neuropathy Sarcoidosis DX:Sarcoidosis Hemochromatosis DX:Hemochromatos is Social History Tobacco Use Types Packs/Day Years [...] not to disclose 2024 1:44 PM EST Obstetrics History Last Filed Vital Signs Vital Sign Reading Time Taken Comments Blood Pressure - - Pulse 90 02/12/2022 8:39 AM EDT Temperature - - Respiratory Rate 16 07/26/2024 1:33 PM EST Oxygen Saturation - - Inhaled Oxygen Concentration - - Weight 73 kg (161 lb) 07/26/2024 1:33 PM EST Height 176.5 cm (5' 9.5 ) 07/26/2024 1:33 PM EST Body Mass Index 23.43 07/26/2024 1:33 PM EST Plan of Treatment Upcoming Encounters Date Type Department Care Team ([facility] st Contact Info) Description 08/19/2024 10:15 AM EST Office Visit Gastroenterology - [address] [phone] Rangel Tay MD [address] [address] Health Maintenance Due Date Last Done Comments Pneumococcal Vaccine: 50+ Years (2 of 2 - PCV) 06/16/2018 06/16/2017 RSV Immunization Patients 60+ Years Old (1 - Risk 60-74 years 1-dose series) 2018 Cholesterol Screening (Lipid Panel) 05/25/2022 Colorectal Cancer Screening: Colonoscopy 05/25/2022 Depression Screening 05/25/2022 Hepatitis C Screening 05/25/2022 Medicare Annual Wellness Visit 05/25/2022 Social Influencers of Health Screening 05/25/2022 Falls Risk Assessment 09/08/2023 COVID-19 Vaccine ( season) 2024 07/06/2023, 04/08/2022, 04/18/2021, Additional history exists DTaP,Tdap,and Td Vaccines (2 - Td or Tdap) 07/22/2034 07/22/2024 Pneumococcal Vaccine: Pediatrics (0 to 5 Years) and At-Risk Patients (6 to 64 Years) Aged Out 06/16/2017 No longer eligible based on patient's age to complete this topic Zoster Vaccines Completed 09/13/2021, 07/12/2021 Influenza Vaccine Completed 07/22/2024, , 04/08/2022, Additional history exists HIB Vaccines Aged Out No longer eligi ble based on patient's age to complete this topic HPV Vaccines Aged Out No longer eligi ble based on patient's age to complete this topic Hepatitis A Vaccines Aged Out No long er eligible based on patient's age to complete this topic Hepatitis B Vaccines Aged Out No long er eligible based on patient's age to complete this topic IPV Vaccines Aged Out No longer eligi ble based on patient's age to complete this topic MMR Vaccines Aged Out No longer eligi ble based on patient's age to complete this topic Meningococcal ACWY Vaccine Aged Out N o longer eligible based on patient's age to complete this topic Meningococcal B Vacine Aged Out No lo nger eligible based on patient's age to complete this topic RSV Immunization Patients Under 20 months Aged Out No longer eligible based on patient's age to complete this topic Varicella Vaccines Aged Out No longer eligible based on patient's age to complete this topic Procedures Procedure Name Priority Date/Time Associated Diagnosis Comments US ABDOMEN COMPLETE Routine 07/29/2024 9:02 AM EST Hereditary hemochromatosis (CMS/HCC) XR KNEE 4+ VIEWS LEFT Routine 07/26/2024 1:08 PM EST Chronic pain of left knee EXTERNAL CLINICAL LAB 07/16/2024 EXTERNAL CLINICAL LAB 05/30/2024 from Last 3 Months Results * US Abdomen Complete (07/29/2024 9:02 [...] is incompletely visualized on this study. Code 31585 G9550, G9547 -------- FINAL REPORT -------- Dictated By: Gagan Fuentes Dictated Date: 07/29/2024 11:56 ET Assigned Physician: Gagan Fuentes Reviewed and Electronically Signed By: Gagan Fuentes Signed Date: 07/29/2024 12:06 ET Workstation ID: [id number] Transcribed By: Self Edit Transcribed Date: 07/29/2024 [...] is incompletely visualized on this study. Code 59616 G9550, G9547 -------- FINAL REPORT -------- Dictated By: Gagan Fuentes Dictated Date: 07/29/2024 11:56 ET Assigned Physician: Gagan Fuentes Reviewed and Electronically Signed By: Gagan Fuentes Signed Date: 07/29/2024 12:06 ET Workstation ID: [id number] Transcribed By: Self Edit Transcribed Date: 07/29/2024 12:04 ET us Rangel Tay MD [facility] US PROCEDURES Final Res ult * XR Knee 4+ Views Left (07/26/2024 1:08 PM EST) Anatomical Region Laterality Modality Lower Extremities, Knee Left Radiogra phic Imaging 07/26/2024 6:25 PM EST Impressions 07/26/2024 6:26 PM EST Moderate degenerative changes of the lateral femorotibial compartment. -------- FINAL REPORT -------- Dictated By: Hermilo Robles Dictated Date: 07/26/2024 18:25 ET Assigned Physician: Hermilo Robles Reviewed and Electronically Signed By: Hermilo Robles Signed Date: 07/26/2024 18:26 ET Workstation ID: [id number] Transcribed By: Self Edit Transcribed Date: 07/26/2024 18:25 ET Narrative 07/26/2024 6:26 PM EST XR KNEE 4+ VIEWS LEFT Reason: JOINT PAIN, KNEE Comparison: None FINDINGS: No fracture. ??No subluxation. ??Moderate degree of degenerative changes of the lateral femorotibial compartment with joint space narrowing, subchondral sclerosis and moderate-sized osteophytes. ??Mild degenerative changes of the patellofemoral compartment with small marginal osteophytes. ??No suprapatellar joint effusion. Procedure Note Hermilo Robles MD - 07/26/2024 XR KNEE 4+ VIEWS LEFT Reason: JOINT PAIN, KNEE Comparison: None FINDINGS: No fracture. No subluxation. Moderate degree of degenerative changes ofthe lateral femorotibial compartment with joint space narrowing,subchondral sclerosis and moderate-sized osteophytes. Mild degenerativechanges of the patellofemoral compartment with small marginal osteophytes.No suprapatellar joint effusion. IMPRESSION: Moderate degenerative changes of the lateral femorotibial compartment. -------- FINAL REPORT -------- Dictated By: Hermilo Robles Dictated Date: 07/26/2024 18:25 ET Assigned Physician: Hermilo Robles Reviewed and Electronically Signed By: Hermilo Robles Signed Date: 07/26/2024 18:26 ET Workstation ID: [id number] Transcribed By: Self Edit Transcribed Date: 07/26/2024 18:25 ET Linden CORDON IMG XR PROCEDURES Final Result * External clinical lab (07/16/2024) Only the most recent of2 resultswithin the time period is included. us Provider [facility] BLOOD ORDERABLES Fin al Result from Last 3 Months [facility] Care Teams Welfare Officer Relationship Specialty Start Date End Date Rosangela Avalos PA [address] [place] [address] [place] [address] PCP - General 07/05/24
--- OUTSIDE RECORDS SUMMARY | 2024-08-19 08:52 | XMS_ITS | Encounter Summary ---
Author Organization [facility] [place] [address] Care Team Providers Care Street Sweeper Operator Name Role Phone Rosangela Avalos Primary Care Provider [phone] Encounter Details Date Type Department Care Team (Latest Contact Info) Description 07/26/2024 12:45 PM EST - 07/26/2024 11:59 PM EST Hospital Encounter [facility] - [place] [place] [address] Chronic pain of left knee Discharge Disposition: Home or Self Care Social [...] AM EST Office Visit Gastroenterology - 299 [facility] [address] [phone] Rangel Tay MD [address] [address] documented as of this encounter Procedures Procedure Name Priority Date/Time Associated Diagnosis Comments XR KNEE 4+ VIEWS LEFT Routine 07/26/2024 1:08 PM EST Chronic pain of left knee documented in this encounter Results * XR Knee 4+ Views Left (07/26/2024 1:08 PM EST) Anatomical Region Laterality Modality Lower Extremities, Knee Left Radiogra psychiatric Imaging 07/26/2024 6:25 PM EST Impressions 07/26/2024 6:26 PM EST Moderate degenerative changes of the lateral femorotibial compartment. -------- FINAL REPORT -------- Dictated By: Hermilo Robles Dictated Date: 07/26/2024 18:25 ET Assigned Physician: Hermilo Robles Reviewed and Electronically Signed By: Hermilo Robles Signed Date: 07/26/2024 18:26 ET Workstation ID: [id number] Transcribed By: Self Edit Transcribed Date: 07/26/2024 [...] Signed Date: 07/26/2024 18:26 ET Workstation ID: [id number] Transcribed By: Self Edit Transcribed Date: 07/26/2024 18:25 ET Linden CORDON IMG XR PROCEDURES Final Result documented in this encounter Visit Diagnoses Diagnosis Chronic pain of left knee documented in this encounter Care Teams Street Sweeper Operator Relationship Specialty Start Date End Date Rosangela Avalos PA [address] [place] [address] [place] [address] PCP - General 07/05/24 documented as of this encounter
== END 2024-08-19 08:37 | disposition home or self-care (01) ==
LOC: HO.BBR 08:36
PROVIDERS: PCP Internal Medicine Endocrinology, Diabetes & Metabolism; Visit Provider Internal Medicine Gastroenterology
DX: Z13.89 Encounter for screening for other disorder (principal)

== ENCOUNTER 2024-12-13 08:01 | Outpatient (REF) | payer OTHER, MEDICARE, SELFPAY ==
--- OUTSIDE RECORDS SUMMARY | 2024-12-13 08:06 | XMS_ITS | Continuity of Care Document ---
Author Organization [facility] Address [address] [place] [address] Phone [phone] Care Team Providers Care Accounting Officer Name Role Phone John Lind M.D. Care Team Information Rece iver [phone] Rosangela Avalos Care Team Information Receive r [phone] Problems Active Problems Provider Date Cardiomyopathy John Lind M.D. Onset: Sarcoidosis John Lind M.D. Onset: Polyneuropathy John Lind M.D. Onset: Hemochromatosis Nurse Onset: Essential hypertension Nurse Onset: Social History Type Date Description Comments Sex Male Sex Unknown Lives With Spouse ETOH Use Denies alcohol use Tobacco Use Start: Unknown Patient has never smoked Smoking Status Reviewed: 09/30/24 Patient has never sm oked Allergies and adverse reactions Description No Known Drug Allergies Medications Active Medications SIG Qnty Indications Ordering Provider Date Tamsulosin HCL0.4mg Capsules Take 1 Capsule By Mouth Every Night marlyn Villanueva M.D. 12/16/2022 Okssoeczkx04cg Capsules Take 1 Capsule By Mouth Twice A Day henny Villanueva M.D. 05/12/2022 [id number] Tablets Take 1 tablet daily Unknown Gpsserkxmluzgl00ph Tablets Take 1 daily Unknown Kfeodxof58-25pe Tablets Take 1 Tablet By Mouth Every Morning & Every Evening Unknown Metoprolol Succinate ER50mg Tablets ER 24HR Take 1 Tablet By Mouth Every Morning & Every Evening. Unknown Vital Signs Date Vital Result Comment 09/30/2024 1:11pm BP Systolic 100 mmHg BP Diastolic 60 mmHg Heart Rate 66 /min Height 69.5 inches 5'9.50 Weight 162.38 lb BMI (Body Mass Index) 23.6 kg/m2 Results Test Acquired Date Facility Test Result H/L Range Note Hemoglobin A1c 03/09/2024 [facility] Hemoglobin A1c 5.4 % 4.8-5.6 1 Glucose 03/09/2024 [facility] Glucose 93 mg/dL 70-99 Glucose, Serum 03/07/2024 [facility] Glucose, Serum <pending> Comp. Metabolic [...] Adam 39 mg/dL 5-40 LDL Chol Calc ([facility]) 67 mg/dL 0-99 LDL Calc Comment: TNP Prostate-Specifi c Ag 01/04/2024 [facility] Prostate-Specifi c Ag 0.7 ng/mL 0.0-4.0 2 Comprehensive Metabolic Panl 05/12/2023 [facility] Glucose 74 mg/dL (70-99) [...] ML/MIN/1.73M2 3 Free And Total PSA 05/12/2023 [facility] Total PSA 0.7 NG/ML (0-4) 4 Free PSA 0.3 NG/ML Percent Free PSA THE PERCENTAGE O <SEE NOTE> % (25-100 ) 5 Free And Total PSA 06/17/2022 [facility] Total PSA 1.3 NG/ML (0-4) 6 Free PSA 0.3 NG/ML Percent Free PSA THE PERCENTAGE O <SEE NOTE> % (25-100 ) 7 1 Prediabetes: 5.7 - 6 .4 Diabetes: >6.4 Glycemic control for adults with diabetes: <7.0 2 Samir ECLIA methodol ogy. According to the [place] [employer], Serum PSA should decrease and [...] INTERCHANGEABLY. Procedures Date Code Description Status 12/16/2022 49608 Additional suppl ies, materials, staff time over and above usual Completed 06/03/2022 [id number] Additional suppl ies, materials, staff time over and above usual Completed Medical Devices Description No Information Available Encounters Type Date Location Provider Dx Diagnosis Office Visit 09/30/2024 1:00p Main Office NERIS Moss E83.119 Hemochromatos is, unspecified G62.9 Polyneuropathy, unsp ecified D86.0 Sarcoidosis of lung I42.9 Cardiomyopathy, unsp ecified Assessments Date Code Description Provider 09/30/2024 E83.119 Hemochromatosis, unspecified NERIS Moss 09/30/2024 G62.9 Neuropathy NERIS Moss 09/30/2024 D86.0 Sarcoidosis of lung N[place]IS [place] 09/30/2024 I42.9 Cardiomyopathy NERIS Chow[place]ury Plan of Treatment Future Appointment(s):* 04/04/2025 1:30 pm - Lucie Eckert CHROME WORKER at Main Office 09/30/2024 - NERIS Moss* E83.119 Hemochromatosis, unspecified * G62.9 Neuropathy * D86.0 Sarcoidosis of lung * I42.9 Cardiomyopathy Functional Status Description No Information Available Mental Status Description No Information Available Referrals Refer to Reason for Referral Status Appt [facility] Knee Pain Closed 07/26 [address] [place], [place] [id number] [phone] [facility] Pulmonary SARCOIDOSIS HISTORY OF RSV Closed 10/07/2022 [address] [place], [place] [id number] [phone]
== END 2024-12-13 08:02 | disposition home or self-care (01) ==
LOC: HO.BBR 08:01
PROVIDERS: PCP Internal Medicine Endocrinology, Diabetes & Metabolism; Visit Provider Internal Medicine Gastroenterology
DX: Z13.89 Encounter for screening for other disorder (principal)

== ENCOUNTER 2024-12-14 14:00 | Outpatient (REF) | payer OTHER, MEDICARE, SELFPAY ==
--- OUTSIDE RECORDS SUMMARY | 2024-12-14 16:44 | XMS_ITS | Continuity of Care Document ---
Author Organization [facility] Address [address] [place] [address] Phone [phone] Care Team Providers Care Collection Systems Consultant Name Role Phone John Lind M.D. Care Team Information Rece iver [phone] Rosangela Avalos Care Team Information Receive r [phone] Problems Active Problems Provider Date Cardiomyopathy John [...] Mouth Every Night marlyn Villanueva M.D. 12/16/2022 Itqmjqxyek28xq Capsules Take 1 Capsule By Mouth Twice A Day henny Villanueva M.D. 05/12/2022 Izemcfo20vt Tablets Take 1 tablet daily Unknown Wdyclmdnvqlfxb95xr Tablets Take 1 daily Unknown Hofmfgcq66-78mq Tablets Take 1 Tablet By Mouth Every [...] Adam 39 mg/dL 5-40 LDL Chol Calc ([facility]) 67 mg/dL 0-99 LDL Calc Comment: TNP Prostate-Specifi c Ag 01/04/2024 [facility] Prostate-Specifi c Ag 0.7 ng/mL 0.0-4.0 2 Comprehensive Metabolic Panl 05/12/2023 [facility] Glucose 74 mg/dL (70-99) [...] ML/MIN/1.73M2 3 Free And Total PSA 05/12/2023 [facility] Total PSA 0.7 NG/ML (0-4) 4 Free PSA 0.3 NG/ML Percent Free PSA THE PERCENTAGE O <SEE NOTE> % (25-100 ) 5 Free And Total PSA 06/17/2022 [facility] Total PSA 1.3 NG/ML (0-4) 6 Free PSA 0.3 NG/ML Percent Free PSA THE PERCENTAGE O <SEE NOTE> % (25-100 ) 7 1 Prediabetes: 5.7 - 6 .4 Diabetes: >6.4 Glycemic control for adults with diabetes: <7.0 2 Samir ECLIA methodol ogy. According to the [place] [employer], Serum PSA should decrease and [...] INTERCHANGEABLY. Procedures Date Code Description Status 12/16/2022 30603 Additional suppl ies, materials, staff time over and above usual Completed 06/03/2022 [id number] Additional suppl ies, materials, staff time over [...] Appointment(s):* 04/04/2025 1:30 pm - Lucie Eckert SENIOR SALES ASSISTANT at Main Office 09/30/2024 - NERIS Moss* E83.119 Hemochromatosis, unspecified * G62.9 Neuropathy * D86.0 Sarcoidosis of lung * I42.9 Cardiomyopathy Functional Status Description No Information Available Mental Status Description No Information Available Referrals Refer to Reason for Referral Status Appt [facility] Knee Pain Closed 07/26 [address] [place], [place] [address] [phone] [facility] Pulmonary SARCOIDOSIS HISTORY OF RSV Closed 10/07/2022 [address] [place], [place] [address] [phone]
== END 2024-12-14 14:01 | disposition home or self-care (01) ==
LOC: HO.BBR 14:00
PROVIDERS: Visit Provider Internal Medicine Gastroenterology
DX: Z13.89 Encounter for screening for other disorder (principal)

== ENCOUNTER 2024-12-27 10:06 | Outpatient (REF) | payer OTHER, MEDICARE, SELFPAY ==
--- OUTSIDE RECORDS SUMMARY | 2024-12-27 10:52 | XMS_ITS | Clinical Summary ---
Author Organization [facility] [address] [facility] Address [address] [place] [address] Phone Care Team Providers Care Drug Inspector Name Role Phone Rosangela Avalos Primary Care Provider [phone] Allergies No known active allergies Medications lisinopriL [...] a day. 90 g 2 5 Active Additional Information Patient not taking.Reported on 08/19/2024 Active Problems Problem Noted Date Diagnosed Date Hereditary hemochromatosis ([facility] V24) 025 Acute HFrEF (heart failure w ith reduced ejection fraction) [place] [place] [facility] V28[place] 08/19/2024 Bronchitis 08/19/2024 Heart failure with reduced e jection fraction ([facility] V24, [facility] V28) 08/19/2024 Pulmonary sarcoidosis ([facility] [place]) 08/19/2024 Encounters Date Type Department Care Team Description 11/15/2024 Telephone Gastroenterology - [address] [place] [address] Rangel Tay MD 11/11/2024 Lab Gastroenterology - [address] [place] [address] Rangel Tay MD Hereditary hemochromatosis ([facility] [place]) from Last 3 Months Surgical History Surgery Date Site/Laterality Comments KNEE ARTHROSCOPY 01/16/2006 Left PROCEDURE: IA ARTHROSCOPY AID TX SPINE&/FX KNEE W/O FIXJ; [...] - Inhaled Oxygen Concentration - - Weight 72.1 kg (159 lb) 08/19/2024 10:19 AM EST Height 175.3 cm (5' 9 ) 08/19/2024 10:19 AM EST Body Mass Index 23.48 08/19/2024 10:19 AM EST Plan of Treatment Upcoming Encounters Date Type Department Care Team (Late st Contact Info) Description 02/03/2025 Lab Gastroenterology - [address] [place] [id number] Rangel Tay MD [address] [facility] [address] [place], [place] [id number] Hereditary hemochromatosis (CMS/HCC V24) Health Maintenance Due Date Last Done Comments Pneumococcal Vaccine: 50+ Years (2 of 2 - PCV) 06/16/2018 06/16/2017 RSV Immunization Adult Patients (1 - Risk 60-74 years 1-dose series) 2018 Cholesterol Screening (Lipid Panel) 05/25/2022 Depression Screening 05/25/2022 Hepatitis C Screening 05/25/2022 Medicare Annual Wellness Visit 05/25/2022 Social Influencers of Health Screening 05/25/2022 Falls Risk Assessment 09/08/2023 COVID-19 Vaccine ( season) 2024 07/06/2023, 04/08/2022, 04/18/2021, Additional history exists Influenza Vaccine (#1) 2025 , 04/24/2023, 04/08/2022, Additional history exists Colorectal Cancer Screening: Colonoscopy 01/04/2030 01/05/2020 DTaP,Tdap,and Td Vaccines (2 - Td or Tdap) 07/22/2034 07/22/2024 Zoster Vaccines Completed 09/13/2021, 07/12/2021 HIB Vaccines Aged Out No longer eligi [...] age to complete this topic Meningococcal B Vaccine Aged Out No l onger eligible based on patient's age to complete this topic RSV Immunization Patients Under 20 months Aged Out No longer eligible based on patient's age to complete this topic Varicella Vaccines Aged Out No longer eligible based on patient's age to complete this topic Procedures Procedure Name Priority Date/Time Associated Diagnosis Comments EXTERNAL CLINICAL LAB 12/15/2024 EXTERNAL CLINICAL LAB 12/14/2024 PHLEBOTOMY THERAPEUTIC Routine 5 12:55 AM EDT Hereditary hemochromatosis ([facility]/HCC V24) PHLEBOTOMY THERAPEUTIC Routine 5 12:55 AM EDT Hereditary hemochromatosis ([facility] V24) EXTERNAL COLONOSCOPY REPORT Routine 01/05/2020 10:40 AM EDT from Last 3 Months or Most Recently Relevant to Health Maintenance Results * External clinical lab (12/15/2024) Only the most recent of2 resultswithin the time period is included. us Provider [facility] LAB BLOOD ORDERABLES Fin al Result * External Colonoscopy Report (01/05/2020 10:40 AM EDT) Anatomical Region Laterality Modality Endoscopy [facility] Provider GI~PROCEDURE ORDERABLES F inal Result from Last 3 Months or Most Recently Relevant to Health Maintenance [facility] Care Teams Drug Inspector Relationship Specialty Start Date End Date Rosangela Avalos PA [address] [place] [address] [place] [address] PCP - General 07/05/24
== END 2024-12-27 10:07 | disposition home or self-care (01) ==
LOC: HO.BBR 10:06
PROVIDERS: Visit Provider Internal Medicine Gastroenterology
DX: Z13.89 Encounter for screening for other disorder (principal)

== ENCOUNTER 2025-03-31 08:00 | Outpatient (REF) | payer OTHER, MEDICARE, SELFPAY ==
--- OUTSIDE RECORDS SUMMARY | 2025-03-31 08:02 | XMS_ITS | Continuity of Care Document ---
Author Organization [facility] Address [address] [place] [address] Phone [phone] Care Team Providers Care [id number] Tank Crewman Name Role Phone John Lind M.D. Care Team Information Rece iver [phone] Lucie Eckert CNP Care Team Informatio n Rn Radiology [phone] Problems Active Problems Provider Date Cardiomyopathy John [...] Mouth Every Night marlyn Villanueva M.D. 12/16/2022 [id number] Capsules Take 1 Capsule By Mouth Twice A Day henny Villanueva M.D. 05/12/2022 Jbvzaom24oi Tablets Take 1 tablet daily Unknown Xqpfgqcrfwxjhw77hw Tablets Take 1 daily Unknown Zdzphdvt51-48zs Tablets Take 1 Tablet By Mouth Every [...] Adam 39 mg/dL 5-40 LDL Chol Calc ([facility]) 67 mg/dL 0-99 LDL Calc Comment: TNP Prostate-Specifi c Ag 01/04/2024 [facility] Prostate-Specifi c Ag 0.7 ng/mL 0.0-4.0 2 Comprehensive Metabolic Panl 05/12/2023 [facility] Glucose 74 mg/dL (70-99) BUN [...] ML/MIN/1.73M2 3 Free And Total PSA 05/12/2023 [facility] Total PSA 0.7 NG/ML (0-4) 4 Free PSA 0.3 NG/ML Percent Free PSA THE PERCENTAGE O <SEE NOTE> % (25-100 ) 5 Free And Total PSA 06/17/2022 [facility] Total PSA 1.3 NG/ML (0-4) 6 Free PSA 0.3 NG/ML Percent Free PSA THE PERCENTAGE O <SEE NOTE> % (25-100 ) 7 1 Prediabetes: 5.7 - 6 .4 Diabetes: >6.4 Glycemic control for adults with diabetes: <7.0 2 Samir ECLIA methodol ogy. According to the [place] [employer], Serum PSA should decrease and [...] INTERCHANGEABLY. Procedures Date Code Description Status 12/16/2022 [id number] Additional suppl ies, materials, staff time over and above usual Completed 06/03/2022 [id number] Additional suppl ies, materials, staff time over [...] Appointment(s):* 04/04/2025 1:30 pm - Lucie Eckert CNP at Main Office 09/30/2024 - NERIS Moss* E83.119 Hemochromatosis, unspecified * G62.9 Neuropathy * D86.0 Sarcoidosis of lung * I42.9 Cardiomyopathy Functional Status Description No Information Available Mental Status Description No Information Available Referrals Refer to Reason for Referral Status Appt [facility] Knee Pain Closed 07/26 [address] [place], [place] [id number] [phone] [facility] Pulmonary SARCOIDOSIS HISTORY OF RSV Closed 10/07/2022 [address] [place], [place] [id number] [phone]
== END 2025-03-31 08:01 | disposition home or self-care (01) ==
LOC: HO.BBR 08:00
PROVIDERS: Visit Provider Internal Medicine Gastroenterology
DX: Z13.89 Encounter for screening for other disorder (principal)